=== PATIENT | male | born 1970 | race African-American/Black ===

== ENCOUNTER 2017-02-12 07:22 | Inpatient (IN) ==
[2017-02-12] MEDS ORDERED: ONDANSETRON 4 MG/2 ML VIAL IV STA (08:16)
[2017-02-12] MEDS ORDERED: METOCLOPRAMIDE 10 MG/2 ML VIAL IV STA (08:16)
[2017-02-12] MEDS ORDERED: PANTOPRAZOLE 40 MG VIAL IV STA (08:16)
[2017-02-12] MEDS ORDERED: SODIUM CHLORIDE 0.9% 1,000 ML IV STA (08:16)
--- NOTE | 2017-02-12 08:22 | Emergency Department Note ---
Arrival - Arrival Chief Complaint: GI Bleed/Rectal Stated Complaint: rectal bleed ED Nursing Triage Note: PT C/O DIARRHEA AND BRIGHT RED RECTAL BLEEDING X2 DAYS. PT STATES HE IS WEAK. DENIES PAIN. Mode of Arrival: Ambulatory Limitations: No Limitations Source: Patient Time Seen by Provider: 02/12/17 08:16 - History of Present Illness HPI Narrative: This 47-year-old black male presents with 2 days of bright red blood per rectum associated with black tarry stools as well as significant nausea with intermittent vomiting. Of note the patient is status post cholecystectomy and has had chronic diarrhea ever since for which he takes medication that usually ameliorates this condition, but has not been able to do so given this current situation. The patient describes significant diaphoresis with bowel movements but no significant abdominal cramping or pain with the bowel movement. He denies chills, fever, chest pain, shortness of breath, heartburn, belching, indigestion, colitis history, history of peptic ulcer disease or history of pancreatitis. Currently he feels nauseated but is otherwise medically stable. Onset (ago): day(s) (Patient presents 2 days post onset of symptom) Allergies/Adverse Reactions: Allergies Allergy/AdvReac Type Severity Reaction Status Date / Time No Known Allergies Allergy Verified 02/12/17 07:50 Home Medications: Home Medications Medication Instructions Recorded Confirmed Type Colestipol HCl 4 gm PO BID 02/12/17 02/12/17 History Lisinopril 40 mg PO DAILY 02/12/17 02/12/17 History Metoprolol Succinate 25 mg PO DAILY 02/12/17 02/12/17 History Pantoprazole Tab [Protonix Tab] 40 mg PO DAILY PRN 02/12/17 02/12/17 History amLODIPine [Norvasc] 10 mg PO DAILY 02/12/17 02/12/17 History glipiZIDE [Glipizide] 5 mg PO BEDTIME 02/12/17 02/12/17 History hydroCHLOROthiazide 25 mg PO DAILY 02/12/17 02/12/17 History [Hydrochlorothiazide] Review of System - Review of System 12 point system: reviewed and no additional remarkable complaints except as stated - Review of System Constitutional: Present: as per HPI Respiratory: Present: as per HPI Cardiovascular: Present: as per HPI Gastrointestinal: Present: as per HPI Medical,Surgical,& Family Hx - Medical History Cardio: History of: Hypertension Endocrine: History of: Diabetes Mellitus (IDDM) - Surgical History Abdominal Surgeries: Surgical HX of: Cholecystectomy - Social History Smoking Status: Current every day smoker Frequency of Alcohol Use: Occasionally Type of Drug Use: None Exam Physical Examination: GENERAL: Obese black male in no acute distress. HEENT: Normocephalic. No trauma. Moist mucous membranes. EOMI. PERRLA. ENT NML NECK: Supple. No adenopathy. CARDIAC: Regular. No murmurs. Heart rate 130 CHEST: Clear to auscultation. No respiratory distress. O2 sat 99% ABDOMEN: Soft. Nontender. Hyperactive bowel sounds. EXTREMITIES: No trauma. Normal ROM. No pedal edema. SKIN: No diaphoresis. No rash. NEURO: Alert. Neuro intact no focal deficits. Vital Signs: Vital Signs Temperature 97.8 F 02/12/17 07:47 Pulse Rate 128 H 02/12/17 07:47 Respiratory Rate 18 02/12/17 07:47 Blood Pressure 143/92 02/12/17 07:47 O2 Sat by Pulse Oximetry 100 02/12/17 08:20 Course - Reevaluation(s) Reevaluation #1: Advised patient of need for hospitalization - Consultations Consultation #1: Discussed with hospitalist service who will admit for further evaluation treatment. Results - Labs CBC & BMP: 02/12/17 08:27 02/12/17 08:27 Labs: I have reviewed the lab and noted the low hematocrit and elevated white blood cell count as well as the bump in troponins. - Impressions EKG: Sinus tachycardia with normal DE interval and incomplete right bundle branch block pattern nonspecific ST changes with no acute injury pattern noted. - Diagnostic Findings Procedure: KUB x-ray: image reviewed by me, report reviewed by me (Nonspecific gas and feces pattern) Disposition Clinical Impression: Gastrointestinal hemorrhage Case discussed with: patient, patient's family Disposition: Still a Patient Condition: Guarded Time of Disposition: 09:48
[2017-02-12] MEDS ORDERED: PANTOPRAZOLE 40 MG VIAL IV ONE (08:47)
[2017-02-12] MEDS ORDERED: ONDANSETRON 4 MG/2 ML VIAL ONE (08:47)
[2017-02-12] MEDS ORDERED: METOCLOPRAMIDE 10 MG/2 ML VIAL ONE (08:47)
[2017-02-12 08:57] LABS: Basophils # 0.1 10*3/uL (0.0-0.2); Basophils % 0.3 % (0.0-0.8); Eosinophils # 0.1 10*3/uL (0.0-0.87); Eosinophils % 0.4 % (0.00-10.9); Hematocrit 31.7 VOL% (42.0-52.0); Hemoglobin 10.6 GM/DL (14.0-18.0); Immature Granulocytes % 2.1 %; Immature Granulocytes Absolute 0.38 #; Lymphocytes % 16.4 % (21.2-54.2); Mean Corpuscular HGB Conc 33.4 GM/DL (32-36); Mean Corpuscular Hemoglobin 29 PG (27-34); Mean Corpuscular Volume 86.1 FL (87-102); Mean Platelet Volume 11.9 FL (9.6-12.0); Monocytes # 0.9 10*3/uL (0.11-0.8); Monocytes % 4.9 % (1.7-12.7); Neutrophils # 13.8 10*3/uL (1.4-7.4); Neutrophils % 75.9 % (38.7-73.9); Platelet Count 304 T/CUMM (130-400); Red Blood Count 3.68 MC/CUMM (3.8-5.5); Red Cell Distribution Width 14.5 % (9.3-17.3); White Blood Count 18.3 T/CUMM (4-12)
--- NOTE | 2017-02-12 09:08 | XRay Report ---
Exam: XR abdomen 2V Date: 02/12/2017 8:19 AM Comparison: 08/01/2011 Indication: Nausea vomiting diarrhea Findings: Previous cholecystectomy clips are present. Lung bases are unremarkable. The liver and spleen are unremarkable Renal contours are unremarkable The bony structures are demonstrated with lateral marginal osteophytes along the acetabular rims.. Degenerative change present lateral marginal thoracic lumbar spine. No obvious pneumoperitoneum Nonspecific GI pattern. Impression: 1. Previous cholecystectomy 2. Nonspecific GI pattern. PROCEDURE INTERPRETED AT [facility] DEPARTMENT OF RADIOLOGY Final Report Signed by: Dr. Jose Alejandro Regalado
[2017-02-12 09:16] LABS: INR 1.1; Partial Thromboplastin Time 27.5 SECS (0-40)
[2017-02-12 09:24] LABS: Alanine Aminotransferase 16 U/L (16-61); Albumin 3.6 G/DL (3.4-5.0); Alkaline Phosphatase 59 U/L (45-117); Aspartate Amino Transferase 9 U/L (0-37); Blood Urea Nitrogen 13 MG/DL (7-18); Calcium 8.3 MG/DL (8.5-10.1); Glucose 305 MG/DL (74-106); Osmolality,Calculated 283.8 MOS/KG (273-304); Potassium 4.2 MMOL/L (3.5-5.1); Sodium 137 MMOL/L (136-145); Total Protein 6.4 G/DL (6.4-8.3); Troponin I Only 0.089 NG/ML (0.00-0.045)
--- NOTE | 2017-02-12 10:21 | Hospitalist History & Physical ---
<Judson Reagan - Last Filed: 02/12/17 10:55> Assessment and Plan - Time spent with patient Time spent with patient: Greater than 30 minutes (1) GI bleed Status: Acute Assessment and plan: BRBPR x 2 days. H&H 10.6 and 31.7. Admit for further eval and treatment. INR stable. Patient does have history of hemorrhoids. He has been typed and screened. Will order blood for possible transfusion. IV fluids. Trend H&H. Repeat CBC in a.m. NPO diet. PPI therapy. Current Visit: Yes (2) Hypertension Status: Acute Assessment and plan: Patient did not take antihypertensives this morning. Will continue home meds once reconciled. Current Visit: Yes (3) Diabetes mellitus Status: Acute Assessment and plan: Patient reports a history of DM Type I (I feel he may be confused about this) which he was diagnosed with approximately 7 years ago. He notes that he takes Glimepiride daily. His blood sugars today are 305. We will initiate accu-cheks ACHS and SSI per protocol. Current Visit: Yes (4) SIRS (systemic inflammatory response syndrome) Status: Acute Assessment and plan: Patient is tachycardic with an elevated white count. Will obtain blood culture and lactic acid. Start empiric antibiotics. Current Visit: Yes History of Present Illness Chief complaint: GI Bleed History of present illness: Mr. Sheppard is a 47 year old male with a past medical history significant for DM, hypertension, hemorrhoids, 2 years s/p cholecystectomy who presents to the ED today with complaints of BRBPR having onset 2 days ago. The patient reports that he does normally have diarrhea post his cholecystectomy for which he takes daily colestipol. He notes that he initially began feeling sick to his stomach on but didn't start having the bloody diarrhea until yesterday. He initially attributed the sick feeling and loose red stool to the red hots he had eaten earlier. He notes that he began to feel worried when each time he toileted he would break out in sweat. He vomited twice yesterday, but that has since resolved. On admission, he is resting comfortably and appears to be in no acute distress. He confirms rectal bleeding, nausea, near syncope, general weakness. He denies headache, palpitations, chest pain, abdominal pain, edema. Of note, the patient did have syncopal episode while in radiology today. Labs on admission reveal: WBC 18.3, Hemoglobin 10.6, Hematocrit 31.7, serum glucose 305. After discussion with Dr. Tate and Dr. Harden, the patient will be admitted to the hospital medicine service for further evaluation and treatment. He is a full code. Home meds have been reviewed and reconciled. Home Medications Medication Instructions Recorded Confirmed Type Colestipol HCl 4 gm PO BID 02/12/17 02/12/17 History Lisinopril 40 mg PO DAILY 02/12/17 02/12/17 History Metoprolol Succinate 25 mg PO DAILY 02/12/17 02/12/17 History Pantoprazole Tab [Protonix Tab] 40 mg PO DAILY PRN 02/12/17 02/12/17 History amLODIPine [Norvasc] 10 mg PO DAILY 02/12/17 02/12/17 History glipiZIDE [Glipizide] 5 mg PO BEDTIME 02/12/17 02/12/17 History hydroCHLOROthiazide 25 mg PO DAILY 02/12/17 02/12/17 History [Hydrochlorothiazide] Allergies Allergy/AdvReac Type Severity Reaction Status Date / Time No Known Allergies Allergy Verified 02/12/17 07:50 Medical,Surgical,& Family Hx - Medical History Cardio: History of: Hypertension Endocrine: History of: Diabetes Mellitus (IDDM) - Surgical History Abdominal Surgeries: Surgical HX of: Cholecystectomy - Family History Family History: Reports;: Family Diabetes, Family Heart Disease, Family Hypertension - Social History Smoking Status: Current every day smoker Have you smoked in the last 12 months: Yes Time spent discussing smoking cessation with patient: 3 to 10 minutes Frequency of Alcohol Use: Occasionally Type of Drug Use: None Marital Status: Lives With:: Spouse Functional capacity: independent ambulation 12 point system: reviewed and no additional remarkable complaints except as stated Exam - Constitutional Vitals: Period Temp Pulse Resp BP Sys/Sims Pulse Ox Last 24 Hr 97.8 F 128 18 143/92 99-100 Exam: General appearance: morbidly obese, no acute distress - Head Head exam: Present: normocephalic, atraumatic - Eye Eye exam: Present: EOMI. Absent: conjunctival injection, nystagmus Pupils: Present: MARYCRUZ, normal accommodation - ENT ENT exam: Present: normal exam, normal external ear exam - Neck Neck exam: Present: normal inspection. Absent: lymphadenopathy, tenderness, thyromegaly - Respiratory Respiratory exam: Present: clear to auscultation bilaterally. Absent: rales, rhonchi, wheezes - Cardiovascular Cardiovascular exam: Present: tachycardia. Absent: carotid bruit, gallop, rubs - GI/Abdominal GI/Abdominal exam: Present: normal bowel sounds, soft. Absent: ascites, distended, mass - Extremities Exam Extremities exam: Present: normal inspection, normal capillary refill. Absent: edema - Back Exam Back exam: Absent: CVA tenderness (L), CVA tenderness (R) - Neurological Exam Neurological exam: Present: alert, oriented X3, CN II-XII intact, reflexes normal - Psychiatric Psychiatric exam: Present: normal affect, normal mood - Skin Skin exam: Present: normal color, warm, dry Results - Labs CBC & BMP: 02/12/17 08:27 02/12/17 08:27 Lab Results: I have reviewed the past 24 hour labs - Diagnostic Findings Procedure: Chest x-ray: image reviewed by me, report reviewed by me Sepsis - Sepsis Classification of Sepsis: Sepsis (SIRS with possible infection) - Physical Exam Respiratory exam: clear to auscultation bilaterally Capillary Refill: Less Than 3 Seconds Peripheral pulses: Radial (L): 2+, Radial (R): 2+, Dorsalis Pedis (L) PM: 2+, Dorsalis Pedis (R) PM: 2+, Posterior Tibialis (L): 1+, Posterior Tibialis (R): 1 + Cardiovascular exam: tachycardia Skin exam: normal color <White,Briana R - Last Filed: 02/12/17 12:21> Assessment and Plan (1) GI bleed Status: Acute Assessment and plan: serial hemoglobins, transfuse if less than 8, needs colonoscopy will consult Dr. Bacon who is covering for Dr Navarro Current Visit: Yes (2) Leukocytosis Status: Acute Assessment and plan: ct of abdomen and pelvis, cipro and flagyl IV, stool cultures, probably just gastroenteritis Current Visit: Yes (3) Anemia Status: Acute Assessment and plan: cont protonix 40 mg IV bid, transfuse if less than 8 Current Visit: Yes (4) Hypertension Status: Acute Assessment and plan: hold meds except metoprolol, syncope down in radiology, get orthostatics and NS bolus Current Visit: Yes (5) Diabetes mellitus Status: Acute Current Visit: Yes (6) SIRS (systemic inflammatory response syndrome) Status: Acute Assessment and plan: UA, CXR, started cipro and flagyl Current Visit: Yes History of Present Illness History of present illness: Mr. Sheppard is a 47 year old male seen and examined. Agree with findings above. Patient had EGD from Dr. Navarro in the past. Patient does reports bloody bowel movements and dark tarry bowel movements. He has Nausea and vomiting since but has chronic diarrhea after GB removed. - Constitutional Constitutional: Present: headache(s), weight gain. Absent: daytime sleepiness, fatigue - EENT Eyes: Absent: blurry vision, diplopia Ears: Absent: decreased hearing, ear discharge Nose, mouth and throat: Present: headache(s). Absent: sore throat - Cardiovascular Cardiovascular: Absent: chest pain at rest, dyspnea - Respiratory Respiratory: Absent: cough, dyspnea - Gastrointestinal Gastrointestinal: Present: bloating, diarrhea, hematochezia, nausea, vomiting. Absent: abdominal pain, constipation - Genitourinary Genitourinary: Absent: difficulty urinating, dysuria - Neurological Neurological: Present: headache(s), syncope. Absent: focal weakness - Psychiatric Psychiatric: Absent: anxiety, depression - Endocrine Endocrine: Present: heat intolerance. Absent: cold intolerance, fatigue - Hematologic/Lymphatic Hematologic/Lymphatic: Absent: easy bleeding, easy bruising Exam - Constitutional Vitals: Period Temp Pulse Resp BP Sys/Sims Pulse Ox Last 24 Hr 97.8 F-97.8 F 101-128 18-20 130-167/86-114 97-100 Results - Labs CBC & BMP: 02/12/17 08:27 02/12/17 08:27 - Diagnostic Findings Procedure: Abdominal x-ray: report reviewed by me (nonspecific bowel gas pattern )
[2017-02-12] MEDS ORDERED: DOCUSATE SODIUM 100 MG CAPSULE PO PRN (11:02)
[2017-02-12] MEDS ORDERED: ACETAMINOPHEN 325 MG TABLET PO PRN (11:02)
[2017-02-12] MEDS ORDERED: LACTULOSE 20 GM/30 ML UDCUP PO PRN (11:02)
[2017-02-12] MEDS ORDERED: NICOTINE 21 MG/24 HR PATCH TRANSDERM PRN (11:02)
[2017-02-12] MEDS ORDERED: GLUCAGON 1 MG VIAL IM PRN (11:13)
[2017-02-12] MEDS ORDERED: DEXTROSE 50% 25 GM/50 ML VIAL IV PRN (11:13)
[2017-02-12] MEDS ORDERED: LISINOPRIL 20 MG TABLET PO SCH (11:15)
[2017-02-12] MEDS ORDERED: PANTOPRAZOLE 40 MG TABLET PO SCH (11:30)
[2017-02-12] MEDS ORDERED: hydroCHLOROthiazide 25 MG TABLET PO SCH (11:30)
[2017-02-12] MEDS ORDERED: amLODIPine 10 MG TABLET PO SCH (11:30)
[2017-02-12] MEDS ORDERED: SODIUM CHLORIDE 0.9% 1,000 ML IV ONE (12:09)
--- NOTE | 2017-02-12 12:45 | XRay Report ---
XR chest 1V portable Indication: Shortness of breath Comparison: Chest x-ray 08/21/2013. Technique: Portable AP chest was performed. Findings: Heart size, mediastinal contour, and hilar structures demonstrate no significant abnormalities. The lung parenchyma is clear. Bones and soft tissues demonstrate no significant abnormalities. Impression: 1. No evidence of acute pathology. 02/12/2017 12:42 PM PROCEDURE INTERPRETED AT [facility] DEPARTMENT OF RADIOLOGY Final Report Signed by: Dr. Colin Kumar
[2017-02-12 12:48] LABS: Hematocrit 32.6 VOL% (42.0-52.0); Hemoglobin 10.8 GM/DL (14.0-18.0)
[2017-02-12] MEDS: CIPROFLOXACIN INJ 400 MG in PREMIX 1 EACH IV SCH (13:53)
[2017-02-12] MEDS: METOPROLOL SUCCINATE XL 25 MG TABLET PO SCH (14:01)
[2017-02-12] MEDS: SODIUM CHLORIDE 0.9% 1,000 ML IV SCH (14:01)
[2017-02-12] MEDS: INSULIN LISPRO 100 UNIT/ML SUBCUT SCH ×3 (14:01→20:50)
--- NOTE | 2017-02-12 15:03 | CT Report ---
Exam: CT abdomen pelvis w con Date: 02/12/2017 12:12 PM Comparison: None Indication: Nausea vomiting diarrhea Total DLP: 3435.7 mGy*cm Technical: Oral contrast was administered. Images were obtained from the lung bases to the iliac crest continuation through the pelvis with 100 cc of Omnipaque 350 with axial sagittal coronal imaging available for review. Dose reduction was performed with decreasing kv and mA and automated exposure Findings: Lung bases: No obvious infiltrates or effusions present. The heart is normal in size. Liver and Spleen: Tiny area of decreased attenuation in the right hepatic lobe measuring approximately 7 mm. Minimal fatty infiltration present. Hepatic and portal veins and spleen are unremarkable. Gallbladder and Pancreas: Previous cholecystectomy. The pancreas is unremarkable. Adrenals: Unremarkable Kidneys: Both kidneys are equally perfused and demonstrate no evidence for obstructive uropathy. Stomach: Incomplete distended with air-fluid and debris Retroperitoneum: No enlarged lymph nodes. Aorta and IVC: No obvious aneurysm aorta vessels and IVC reveal no obvious aneurysm. Atherosclerotic plaque in the aorta iliac vessels present. Bowel and Mesentery: No evidence of appendicitis or diverticulosis or diverticulitis change present. No free fluid present. The appendix is air and contrast and fluid filled Pelvis: Bladder: Incompletely distended with contrast and fluid Fluid: No free fluid identified. Lymph nodes: Small shotty nodes present. Pelvic organs: Unremarkable Osseous structures: Degenerative changes present thoracolumbar spine. Impression: 1. Small cyst in the right hepatic lobe measuring 7 mm. Minimal fatty infiltrate of the liver 2. Previous cholecystectomy 3. Degenerative spondylosis change thoracic lumbar spine. 4. Vascular calcinosis 5. No evidence of free fluid appendicitis or diverticulitis present. PROCEDURE INTERPRETED AT [facility] DEPARTMENT OF RADIOLOGY Final Report Signed by: Dr. Jose Alejandro Regalado
[2017-02-12] MEDS: metroNIDAZOLE INJ 500 MG in PREMIX 1 EACH IV SCH ×2 (15:17→20:59)
[2017-02-12 19:41] LABS: Hemoglobin 9.3 GM/DL (14.0-18.0)
[2017-02-12] MEDS: PANTOPRAZOLE 40 MG VIAL IV SCH (20:46)
[2017-02-12] MEDS ORDERED: COLESTIPOL 1 GM TABLET PO SCH (21:00)
[2017-02-13] MEDS: CIPROFLOXACIN INJ 400 MG in PREMIX 1 EACH IV SCH ×2 (00:39→13:50)
[2017-02-13 01:46] LABS: Basophils # 0.1 10*3/uL (0.0-0.2); Basophils % 0.4 % (0.0-0.8); Eosinophils # 0.5 10*3/uL (0.0-0.87); Eosinophils % 2.3 % (0.00-10.9); Hemoglobin 8.3 GM/DL (14.0-18.0); Immature Granulocytes % 1.7 %; Immature Granulocytes Absolute 0.35 #; Mean Corpuscular HGB Conc 33.2 GM/DL (32-36); Mean Corpuscular Hemoglobin 29 PG (27-34); Mean Corpuscular Volume 87.4 FL (87-102); Mean Platelet Volume 11.5 FL (9.6-12.0); Monocytes # 1.2 10*3/uL (0.11-0.8); Monocytes % 5.8 % (1.7-12.7); Neutrophils # 11.5 10*3/uL (1.4-7.4); Neutrophils % 55.8 % (38.7-73.9); Platelet Count 234 T/CUMM (130-400); Red Blood Count 2.86 MC/CUMM (3.8-5.5); Red Cell Distribution Width 14.6 % (9.3-17.3); White Blood Count 20.6 T/CUMM (4-12)
[2017-02-13 02:15] LABS: Calcium 8.3 MG/DL (8.5-10.1); Magnesium 2.2 MG/DL (1.8-2.4); Osmolality,Calculated 280.4 MOS/KG (273-304)
[2017-02-13 03:34] LABS: Platelet Estimate Normal
[2017-02-13] MEDS: SODIUM CHLORIDE 0.9% 1,000 ML IV SCH ×4 (04:16→21:58)
[2017-02-13] MEDS: metroNIDAZOLE INJ 500 MG in PREMIX 1 EACH IV SCH (05:07)
--- NOTE | 2017-02-13 06:46 | EKG Report ---
Stationary ECG Study [facility] ER Test Date: 02/12/2017 9:23:36 AM Pat Name: DON LAZO Department: Room: 517 Gender: M Ventilating Equipment Installer: : 1970 Requested by: Chucho Rowell Order Number: [id number] Reading MD: MAGGI MARTINES Intervals [place] Rate: 107 P: 70 ME: 132 QRS: 18 QRSD: 104 T: 43 QT: 353 QTc: 416 Interpretive Statements SINUS TACHYCARDIA INCOMPLETE RIGHT BUNDLE BRANCH BLOCK Electronically Signed On 02-13-17 06:59:21 CDT by MAGGI MARTINES [email or web address]
[2017-02-13] MEDS: PANTOPRAZOLE 40 MG VIAL IV SCH ×2 (08:13→20:18)
[2017-02-13] MEDS: INSULIN LISPRO 100 UNIT/ML SUBCUT SCH ×4 (08:13→20:18)
[2017-02-13] MEDS: METOPROLOL SUCCINATE XL 25 MG TABLET PO SCH (08:13)
--- NOTE | 2017-02-13 10:35 | Hospitalist Progress Note ---
Assessment and Plan (1) GI bleed Status: Acute Assessment and plan: Transfuse 2 units of prbc today and prn hgb less than 8, bleeding scan, Dr. Bacon consulted. Cont clear liquids only. Current Visit: Yes (2) Leukocytosis Status: Acute Assessment and plan: WBC cont to climb, could be due to bleeding, cont cipro to cover for gastroenteritis. Stool negative for WBC, c diff and cx, cont to monitor Current Visit: Yes (3) Anemia Status: Acute Assessment and plan: cont protonix 40 mg IV bid, transfuse 2 units now Current Visit: Yes (4) Hypertension Status: Acute Assessment and plan: orthostatic, cont NS and giving two units of blood Current Visit: Yes (5) Diabetes mellitus Status: Acute Assessment and plan: Hemoglobin A1c 7.3. Blood sugars stable continue insulin sliding scale only for now Current Visit: Yes (6) SIRS (systemic inflammatory response syndrome) Status: Acute Assessment and plan: elevated lactic acid of 2.6, but dont consider him septic shock, blood cx pending, UA pending, stool cx negative, no diverticulitis on ct, cont cipro IV, Elevated WBC thought to be due to brisk GI bleed. Discussed with Dr. Bacon, doubt gut or ischemic colitis due to lack of pain. Current Visit: Yes Hospitalist: Subjective Interval history: Patient continues to be orthostatic from acute blood loss. We will give him 2 units packed red blood cells today. I would like to get a bleeding scan to locate the source of his bleeding. Dr. Bacon is going to see him today. I asked him to not get out of bed without assistance. Exam - Constitutional Vitals: Period Temp Pulse Resp BP Sys/Sims Pulse Ox Last 24 Hr 97.9 F-98.9 F 91-127 16-20 108-159/45-107 93-118 Exam: Heart Rate-[tachy] Lungs-[CTAB] GI-[+bs soft, NT, obese] Ext-[no edema] Neuro [Motor 5/5], [alert and oriented times 3] psych [normal mood and affect] General [no acute distress] Results - Labs CBC & BMP: 02/13/17 01:17 02/13/17 01:17 Lab Results: I have reviewed the past 24 hour labs
[2017-02-13] MEDS ORDERED: SODIUM CHLORIDE 0.9% 1,000 ML IV ONE (10:50)
--- NOTE | 2017-02-13 11:28 | Gastrointestinal Consult Note ---
Assessment and Plan (1) Fatty liver Status: Acute Assessment and plan: Suspect related to morbid obesity with normal liver test at this point no further evaluation other than suggested weight loss should be entertained Current Visit: Yes (2) Liver cyst Status: Acute Assessment and plan: Unlikely to be of clinical significance no further evaluation needed Current Visit: Yes (3) GI bleed Status: Acute Assessment and plan: 5 day history of painless GI bleeding. Will need colonoscopy to further evaluate. Bleeding scan has been ordered and may prove beneficial localizing region of bleeding. With the absence of pain the possibility of diverticular bleeding would be most likely however will need to exclude other sources of inflammatory bowel disease and malignancy. He has no clinical symptoms at this time to suggest intestinal ischemia or peptic ulcer disease. We will continue to monitor his H&H and transfuse as needed. Will plan colonoscopy in a.m. with Dr. Willie Navarro. Will defer question of EGD to Dr. Navarro pending results of colonoscopy. He is hemodynamically stable at this time. Current Visit: Yes History of Present Illness Chief complaint: Rectal bleeding History of present illness: Mr. Sheppard is a 47 year old male With a 5 day history of rectal bleeding with no complaints of pain. He denies previous history of rectal bleeding and denies any straining at stools. He has had no nausea vomiting no upper tract symptoms of been reported. On admission his hematocrit was 32 went down to 28 and is today down to 25. He is continued to have some older looking blood past but has no nausea or vomiting that he complains of. He does take rare nonsteroidals but none on any regular basis he denies any alcohol use. CT scan done on admission is remarkable for some fatty liver and benign appearing hepatic cysts otherwise unremarkable. He has had previous cholecystectomy and uses Colestid for postcholecystectomy diarrhea. We are asked to see him now for further evaluation of his rectal bleeding. He did have an upper endoscopy done by Dr. Navarro 2 years ago with no reported findings other than H. pylori which was treated at that time. No family history of inflammatory bowel disease or colon cancer is reported. Home Medications Medication Instructions Recorded Confirmed Type Colestipol HCl 4 gm PO BID W/MEALS 02/12/17 02/12/17 History Lisinopril 40 mg PO BID 02/12/17 02/12/17 History Metoprolol Succinate 25 mg PO DAILY 02/12/17 02/12/17 History Pantoprazole Tab [Protonix Tab] 40 mg PO DAILY PRN 02/12/17 02/12/17 History amLODIPine [Norvasc] 10 mg PO DAILY 02/12/17 02/12/17 History glipiZIDE [Glipizide] 5 mg PO BEDTIME 02/12/17 02/12/17 History hydroCHLOROthiazide 25 mg PO DAILY 02/12/17 02/12/17 History [Hydrochlorothiazide] Allergies Allergy/AdvReac Type Severity Reaction Status Date / Time No Known Allergies Allergy Verified 02/12/17 07:50 Medical,Surgical,& Family Hx - Medical History Cardio: History of: Hypertension Endocrine: History of: Diabetes Mellitus (IDDM) Gastrointestinal: History of: Hemorrhoids - Surgical History Abdominal Surgeries: Surgical HX of: Cholecystectomy, EGD Orthopedic Surgeries: Surgical HX of;: Orthopedic Surgery (right knee scope) - Family History Family History: Reports;: Family Diabetes, Family Heart Disease, Family Hypertension Denies;: Family Anesthesia Reaction, Family Cancer, Family Hematology, Family Psychiatric Problems, Family Stroke, Additional Family History - Social History Smoking Status: Current every day smoker Frequency of Alcohol Use: Occasionally Type of Drug Use: None - Constitutional Constitutional: Absent: anorexia, chills, fatigue, fever(s) - EENT Eyes: Absent: blurry vision Nose, mouth and throat: Absent: dysphagia, epistaxis, headache(s) - Cardiovascular Cardiovascular: Absent: chest pain at rest, chest pain with activity, edema - Respiratory Respiratory: Absent: cough, dyspnea, dyspnea on exertion - Gastrointestinal Gastrointestinal: Present: hematochezia. Absent: abdominal pain, bloating, change in bowel habits, hematemesis, melena, nausea, vomiting - Genitourinary Genitourinary: Absent: dysuria, flank pain - Neurological Neurological: Absent: abnormal gait, abnormal speech - Psychiatric Psychiatric: Absent: anxiety, depression - Endocrine Endocrine: Absent: fatigue, polydipsia, polyphagia - Hematologic/Lymphatic Hematologic/Lymphatic: Absent: easy bleeding, easy bruising, lymphadenopathy Exam - Constitutional Vitals: Period Temp Pulse Resp BP Sys/Sims Pulse Ox Last 24 Hr 97.9 F-98.9 F 91-127 16-20 108-159/45-107 93-118 General appearance: no acute distress, morbidly obese - Head Head exam: Present: normal inspection, normocephalic, atraumatic - Eye Eye exam: Present: EOMI. Absent: conjunctival injection, scleral icterus Pupils: Present: MARYCRUZ. Absent: dilated, irregular - ENT ENT exam: Present: normal oropharynx - Neck Neck exam: Present: normal inspection. Absent: lymphadenopathy, thyromegaly - Respiratory Respiratory exam: Present: clear to auscultation bilaterally. Absent: accessory muscle use, rales - Cardiovascular Cardiovascular exam: Present: regular rate and rhythm. Absent: systolic murmur - GI/Abdominal GI/Abdominal exam: Present: normal bowel sounds, soft. Absent: distended, mass , organomegaly, tenderness, rebound - Extremities Exam Extremities exam: Present: normal inspection, normal capillary refill - Back Exam Back exam: Present: normal inspection - Neurological Exam Neurological exam: Present: alert, oriented X3 - Psychiatric Psychiatric exam: Present: normal affect, normal mood - Skin Skin exam: Present: normal color, warm, dry Results - Labs CBC & BMP: 02/13/17 01:17 02/13/17 01:17 Lab Results: I have reviewed the past 24 hour labs - Diagnostic Findings Procedure: KUB x-ray: report reviewed by me, CT: report reviewed by me
[2017-02-13] MEDS ORDERED: BISACODYL 5 MG TABLET PO ONE (12:00)
--- NOTE | 2017-02-13 14:07 | Nuclear Medicine Report ---
Nuclear medicine GI bleeding study. Indication: History of dark bloody stool. Core Limited study, CT of the abdomen and pelvis from February 12, 2017. Following the intravenous administration of 25 mCi technetium 99m tagged PYP red blood cells, imaging was performed over the abdomen and pelvis during blood pool for 60 seconds, and delayed for one hour. Physiologic uptake is seen. No findings to suggest active GI bleeding. Impression: Negative exam. PROCEDURE INTERPRETED AT [facility] DEPARTMENT OF RADIOLOGY Final Report Signed by: Dr. Rosanna Bhatti
[2017-02-13 15:20] LABS: Apearance,Urine CLEAR (Clear); Bilirubin,Urine Negative (Negative); Blood, Urine Moderate mg/dL (Negative); Glucose,Urine (UA) Negative (Negative); Ketones,Urine Negative (Negative); Mucus,Urine Occasional /LPF (Occasional); Nitrite,Urine Negative (Negative); Protein,Urine Negative; Squamous Epithelial Cell,Urine Occasional /HPF (0-10); Urine Color Yellow (Yellow); Urine Specific Gravity 1.011 (1.001-1.035); Urine Urobilinogen < 2.0 EU/DL (0.2-1.0); WBC,Urine <1 /HPF (0-6)
[2017-02-13] MEDS ORDERED: POLYETHYLENE GLYCOL POWDER 255 GM BOTTLE PO ONE (18:00)
[2017-02-14] MEDS: CIPROFLOXACIN INJ 400 MG in PREMIX 1 EACH IV SCH ×2 (00:24→12:37)
[2017-02-14 04:29] LABS: Basophils # 0.1 10*3/uL (0.0-0.2); Basophils % 0.5 % (0.0-0.8); Eosinophils # 0.6 10*3/uL (0.0-0.87); Eosinophils % 3.2 % (0.00-10.9); Hematocrit 26.9 VOL% (42.0-52.0); Immature Granulocytes % 2.6 %; Immature Granulocytes Absolute 0.45 #; Lymphocytes # 4.3 10*3/uL (1.4-4.0); Lymphocytes % 24.8 % (21.2-54.2); Mean Corpuscular HGB Conc 33.5 GM/DL (32-36); Mean Corpuscular Hemoglobin 29 PG (27-34); Mean Corpuscular Volume 87.3 FL (87-102); Mean Platelet Volume 11.1 FL (9.6-12.0); Monocytes # 1.1 10*3/uL (0.11-0.8); Monocytes % 6.6 % (1.7-12.7); Neutrophils # 10.8 10*3/uL (1.4-7.4); Neutrophils % 62.3 % (38.7-73.9); Platelet Count 198 T/CUMM (130-400); Red Blood Count 3.08 MC/CUMM (3.8-5.5); Red Cell Distribution Width 14.6 % (9.3-17.3); White Blood Count 17.4 T/CUMM (4-12)
[2017-02-14 04:56] LABS: Calcium 8.3 MG/DL (8.5-10.1); Osmolality,Calculated 278.4 MOS/KG (273-304); Potassium 3.8 MMOL/L (3.5-5.1)
--- NOTE | 2017-02-14 07:23 | Operative Note ---
Date of procedure: 02/14/17 Pre-op diagnosis: Hematocrit dropped 32.6-->26.9%, rectal bleeding Post-op diagnosis: other (This patient appears to have had a diverticular bleed which I suspect was from the right side of the colon as he has pandiverticulosis noted. Small internal hemorrhoids were noted on retroflex and a single polyp was removed from the proximal descending colon by hot snare polypectomy.) Procedure: PROCEDURE: Colonoscopy and hot snare polypectomy REFERRING PHYSICIAN: Briana Harden MD INDICATIONS: Rectal bleeding from 32% down to 27% the prior H&P was reviewed and interrim changes are as noted: No change from GI consultation yesterday ENDOSCOPIST: Jordi Navarro MD ENDOSCOPE: [employer] Video 100 System colonoscope COLON PREPARATION: 238 gm of PEG containing laxative and 1.9 liters of gatoraid/sports drink and dulcolax 15 mg q8 hours x 3 ASA CLASS: 3 EXAM: CV: regular rate and rhythm Respiratory: Clear without wheezes Abdominal: active bowel sounds Rectal: Good tone, no fissures or fistulas MEDICATION: Per nursing anesthesia protocol, see their notes PROCEDURE: After discussion of the potential risks and benefits of colonoscopy, the informed consent was obtained, from patient or health care surrogate. The patient was then placed in the left lateral decubitus position where sedation was achieved as noted above. Rectal examination was followed by insertion of the colonoscope. The colonoscope was passed under direct visualization to the cecum. Advancement was facilitated by insertion/withdrawl techniques, abdominal pressure and patient positioning. Once the cecal pole was reached, slow withdrawal was performed with the findings as noted below. The patient tolerated the procedure well and without complication. QUALITY OF PREP: Excellent WITHDRAWL TIME: 10 minutes 2 seconds BIOPSIES: Proximal descending colon polyp PHOTOGRAPHS: Obtained FINDINGS: The musoca appeared normal in the following regions: rectum, sigmoid colon, splenic flexure, transverse colon, hepatic flexure, ascending colon and cecum. Position within the cecum was confirmed by ileocecal valve, appendiceal oriface, and the convergence of folds (crows foot). No colitis, mass or AVM was noted throughout the colon. There was a single 8 mm polyp noted in the proximal descending colon removed by hot snare polypectomy, unfortunately this shredded as it was being retrieved and only minimal scraps were found. Mild smith-diverticulosis noted, thought to be the source of the bleeding in the right colon. Intubation of the TI was achieved x 5 cm with normal appearence, and small internal hemorrhoids noted on retroflex. IMPRESSION: This patient appears to have had a diverticular bleed which I suspect was from the right side of the colon as he has pandiverticulosis noted. Small internal hemorrhoids were noted on retroflex and a single polyp was removed from the proximal descending colon by hot snare polypectomy. RECOMMENDATIONS: High fiber diet Repeat colonosocopy in 5 years. Citrucel 1 tablespoon in 12 oz juice BID: 1 bottle: :11 Follow up by phone for biopsy results in 1-2 weeks by phone If further bleeding occurs again in the future would consider getting a immediate tagged red blood cell scan to localize the area of bleeding. I suspect this may be ascending colon diverticular bleeding This patient might benefit from a transfusion of 1-2 units of blood at this point as he is down to 27% but will leave this option to the patient himself. Jordi Navarro MD COPY TO: Briana Harden MD Anesthesia: MAC Surgeon / Physician: Jordi Navarro Estimated blood loss: minimal Specimens: other (Proximal descending colon polyp) Condition: stable Disposition: post procedure unit (G.I. Suite) Results - Labs CBC & BMP: 02/14/17 04:01 02/14/17 04:01 Discharge Plan - Discharge Medications No Action Lisinopril 40 mg PO BID Colestipol HCl 4 gm PO BID W/MEALS Metoprolol Succinate 25 mg PO DAILY glipiZIDE [Glipizide] 5 mg PO BEDTIME Pantoprazole Tab [Protonix Tab] 40 mg PO DAILY PRN PRN Reason: stomach hydroCHLOROthiazide [Hydrochlorothiazide] 25 mg PO DAILY amLODIPine [Norvasc] 10 mg PO DAILY - Follow Up or Referral - Forms/Instructions
--- NOTE | 2017-02-14 07:25 | Anesthesia Post-Op ---
Anesthesia Post OP - Post Ansesthetic Evaluation Patient seen in post op: Yes Resp: within normal limits CV: within normal limits Mental: within normal limits Temp: within normal limits [id number]: within normal limits Nausea and Vomiting: within normal limits Pain: within normal limits
--- NOTE | 2017-02-14 07:27 | Gastrointestinal Progress Note ---
Assessment and Plan (1) Diverticulosis of colon with hemorrhage Status: Acute Assessment and plan: This patient had diverticuli throughout the colon, his hematocrit dropped down from 32% to 27% but seems to be otherwise doing quite well. Colonoscopy did not demonstrate any evidence of colitis, ischemia, cancer, or other bleeding source. The patient did have a polyp and will require repeat colonoscopy in 5 years. From my standpoint he is certainly safe to be discharged. We may wish to transfuse him a unit or 2 of blood based on how tired he is with his present anemia, he seems to be on the borderline for transfusion of my opinion. If he re-presents again with further bleeding down the road as occurs in about 25% of patients he will need a tagged red blood cell scan at that point. Current Visit: Yes (2) Acute posthemorrhagic anemia Status: Acute Assessment and plan: Patient's hematocrit this morning is approximately 27%. He has no further bleeding on colonoscopic examination, he can certainly be discharged today in my opinion. Current Visit: Yes (3) Helicobacter pylori gastritis Status: Acute Assessment and plan: This was previously treated approximately 2 years ago and the patient was last seen, his GERD is under control as long as he takes his proton pump inhibitors. Current Visit: Yes (4) Morbid obesity Status: Acute Assessment and plan: The patient needs to lose some weight. He will try to accomplish this as an outpatient. Current Visit: Yes (5) Colon polyps Status: Acute Assessment and plan: The patient has colon polyps discovered on today's colonoscopy. He will require repeat colonoscopy in 5 years. The polyp appeared adenomatous but most of this was lost during the retrieval. Current Visit: Yes Gastroenterology - PN: Subj Interval history: No new complaints, no further bleeding. Exam (Progress Note) - Constitutional Vitals: Period Temp Pulse Resp BP Sys/Sims Pulse Ox Last 24 Hr 97.6 F-98.7 F 85-118 15-20 116-159/66-95 93-100 General appearance: no acute distress - Head Head exam: Present: normocephalic - Eye Eye exam: Present: EOMI Pupils: Present: MARYCRUZ - Respiratory Respiratory exam: Present: clear to auscultation bilaterally - Cardiovascular Cardiovascular exam: Present: regular rate and rhythm - GI/Abdominal GI/Abdominal exam: Present: normal bowel sounds, soft. Absent: distended, tenderness, rebound - Extremities Exam Extremities exam: Absent: edema - Neurological Exam Neurological exam: Present: alert, oriented X3, CN II-XII intact - Psychiatric Psychiatric exam: Present: normal affect, normal mood - Skin Skin exam: Present: warm Results - Labs CBC & BMP: 02/14/17 04:01 02/14/17 04:01
[2017-02-14] MEDS: INSULIN LISPRO 100 UNIT/ML SUBCUT SCH ×4 (07:34→20:38)
[2017-02-14] MEDS ORDERED: ONDANSETRON 4 MG/2 ML VIAL ONE (07:38)
[2017-02-14] MEDS: ONDANSETRON 4 MG/2 ML VIAL IV PRN ×2 (07:40→16:08)
[2017-02-14] MEDS: PANTOPRAZOLE 40 MG VIAL IV SCH ×3 (08:01→20:26)
[2017-02-14] MEDS: METOPROLOL SUCCINATE XL 25 MG TABLET PO SCH ×2 (08:01→08:17)
--- NOTE | 2017-02-14 09:41 | Hospitalist Progress Note ---
Assessment and Plan (1) GI bleed Status: Acute Assessment and plan: Resolved bleeding scan negative. Most likely due to diverticular bleed. Status post colonoscopy no active bleeding does have hemorrhoids and diverticuli. Current Visit: Yes (2) Leukocytosis Status: Acute Assessment and plan: May due to inflammation from diverticulitis bleed. Continue Cipro for now. Trending down. Blood cultures negative. UA negative Current Visit: Yes (3) Anemia Status: Acute Assessment and plan: cont protonix 40 mg IV bid, stable Current Visit: Yes (4) Hypertension Status: Acute Assessment and plan: orthostatic, cont NS and giving two units of blood Current Visit: Yes (5) Diabetes mellitus Status: Acute Assessment and plan: Hemoglobin A1c 7.3. Blood sugars stable continue insulin sliding scale only for now Current Visit: Yes (6) SIRS (systemic inflammatory response syndrome) Status: Acute Assessment and plan: elevated lactic acid of 2.6, but dont consider him septic shock, blood cx pending, UA pending, stool cx negative, no diverticulitis on ct, cont cipro IV, Elevated WBC thought to be due to brisk GI bleed. Discussed with Dr. Bacon, doubt gut or ischemic colitis due to lack of pain. Current Visit: Yes Hospitalist: Subjective Interval history: Patient no longer bleeding. Patient has had an colonoscopy today which showed diverticuli and hemorrhoids. No active bleeding at this time. Bleeding scan from yesterday was negative. Patient feeling better today and white count trending down. Hemoglobin is stable but I would like him to stay 1 more day to ensure that it remains stable. I will Hep-Lock his fluids and DC his athletic monitor Exam - Constitutional Vitals: Period Temp Pulse Resp BP Sys/Sims Pulse Ox Last 24 Hr 97.5 F-98.9 F 85-118 15-22 116-183/66-114 94-100 Exam: Heart Rate-[regular rate and rhythm] Lungs-[CTAB] GI-[+bs soft, NT, obese] Ext-[no edema] Neuro [Motor 5/5], [alert and oriented times 3] psych [normal mood and affect] General [no acute distress] Results - Labs CBC & BMP: 02/14/17 04:01 02/14/17 04:01 Lab Results: I have reviewed the past 24 hour labs Labs: Blood cultures 2 negative no growth, stool for culture negative
[2017-02-14] MEDS: CARVEDILOL 6.25 MG TABLET PO SCH ×2 (09:56→16:04)
[2017-02-14] MEDS: amLODIPine 5 MG TABLET PO SCH (09:56)
[2017-02-15] MEDS: CIPROFLOXACIN INJ 400 MG in PREMIX 1 EACH IV SCH (00:47)
[2017-02-15 03:16] LABS: Basophils # 0.1 10*3/uL (0.0-0.2); Basophils % 0.4 % (0.0-0.8); Eosinophils # 0.6 10*3/uL (0.0-0.87); Eosinophils % 3.1 % (0.00-10.9); Hematocrit 25.1 VOL% (42.0-52.0); Hemoglobin 8.5 GM/DL (14.0-18.0); Immature Granulocytes % 1.9 %; Immature Granulocytes Absolute 0.33 #; Lymphocytes # 5.2 10*3/uL (1.4-4.0); Lymphocytes % 29.1 % (21.2-54.2); Mean Corpuscular HGB Conc 33.9 GM/DL (32-36); Mean Corpuscular Hemoglobin 29 PG (27-34); Mean Corpuscular Volume 86.9 FL (87-102); Mean Platelet Volume 10.5 FL (9.6-12.0); Monocytes # 1.1 10*3/uL (0.11-0.8); Monocytes % 6.4 % (1.7-12.7); Neutrophils # 10.5 10*3/uL (1.4-7.4); Neutrophils % 59.1 % (38.7-73.9); Platelet Count 216 T/CUMM (130-400); Red Blood Count 2.89 MC/CUMM (3.8-5.5); Red Cell Distribution Width 14.1 % (9.3-17.3); White Blood Count 17.7 T/CUMM (4-12)
[2017-02-15 03:43] LABS: Calcium 8.6 MG/DL (8.5-10.1); Osmolality,Calculated 281.1 MOS/KG (273-304); Potassium 3.7 MMOL/L (3.5-5.1)
[2017-02-15] MEDS ORDERED: FUROSEMIDE 20 MG/2 ML VIAL IV PRN (07:12)
[2017-02-15] MEDS ORDERED: SODIUM CHLORIDE 0.9% 250 ML IV PRN (07:12)
[2017-02-15 07:44] VITALS: BP 168/85
[2017-02-15] MEDS: CARVEDILOL 6.25 MG TABLET PO SCH (07:58)
[2017-02-15] MEDS: INSULIN LISPRO 100 UNIT/ML SUBCUT SCH (07:58)
[2017-02-15] MEDS: amLODIPine 5 MG TABLET PO SCH (07:59)
[2017-02-15] MEDS: PANTOPRAZOLE 40 MG VIAL IV SCH (07:59)
--- NOTE | 2017-02-15 08:38 | Discharge Summary ---
<[place] - Last Filed: 02/15/17 08:59> Hospital Course - Hospital Course Hospital Course: Mr. Sheppard is a 47 year old with a past medical history significant for DM, hypertension, hemorrhoids, 2 years s/p cholecystectomy who presented to the ED on 02/12/2017 with complaints of BRBPR. The patient was evaluated in the ED, found to have brisk bleeding and was admitted to the hospital medicine service with GI Bleed, Hypertension, DM, SIRS, leukocytosis. We obtained serial hemoglobins, ordered blood for transfusion, consulted GI, ordered a CT of abdomen and pelvis, stool cultures and started the patient on Cipro and Flagyl IV. Due to the patient having a syncopal episode while in radiology, all antihypertensives were held except his metoprolol. Abdominal CT was remarkable only for some fatty liver and benign-appearing hepatic cysts. His H&H continued to drop, and he was transfused with 2 units of packed red blood cells on 02/13/2017. A bleeding scan was negative for any apparent source of bleeding. The patient had a colonoscopy and hot snare polypectomy on 2016 which found the patient to have had a diverticular bleed which appears to have come from the right side of the colon and pandiverticulosis was noted. Patient does have small internal hemorrhoids and a single polyp was removed from the proximal descending colon by hot snare polypectomy. GI recommends high -fiber diet with repeat colonoscopy in 5 years and follow-up by phone for biopsy results in 1-2 weeks at . Leukocytosis is believed to be from inflammation associated with diverticular bleed but will treat with 10 days of cipro and flagyl. His anemia is stable with an H&H of 8.5 and 21.5. The patient should continue PPI therapy. He will be discharged home to self with follow-up with his PCP and with GI by phone for biopsy results. Patient seen and examined and stable for discharge. Hospital course reviewed and edited. Diagnosis - Discharge Diagnosis (1) GI bleed Status: Acute (2) Hypertension Status: Acute (3) Diabetes mellitus Status: Acute (4) SIRS (systemic inflammatory response syndrome) Status: Acute Specialty Discharge - Follow Up or Referrals Discharge Plan - Discharge Data Disposition: Disch To Home/Self Care - Discharge Medications New Ciprofloxacin Tab [Cipro Tab] 750 mg PO BID #20 tablet metroNIDAZOLE TAB [Flagyl Cap/Tab] 500 mg PO TID #30 tablet Carvedilol [Coreg] 6.25 mg PO BID W/MEALS #60 tablet Continue Colestipol HCl 4 gm PO BID W/MEALS Metoprolol Succinate 25 mg PO DAILY glipiZIDE [Glipizide] 5 mg PO BEDTIME Pantoprazole Tab [Protonix Tab] 40 mg PO DAILY PRN PRN Reason: stomach amLODIPine [Norvasc] 10 mg PO DAILY Discontinued Lisinopril 40 mg PO BID hydroCHLOROthiazide [Hydrochlorothiazide] 25 mg PO DAILY - Follow Up or Referral Follow Up: Jordi Navarro MD [Physician] - 1 Month Herman Moreno MD [Physician] - 2 Weeks - Forms/Instructions Instructions: Gastrointestinal Bleeding (DC), Diverticulitis (DC), Diverticulitis Diet (DC) Exam - Constitutional Vitals: Period Temp Pulse Resp BP Sys/Sims Pulse Ox Last 24 Hr 97.7 F-98.5 F 76-105 17-21 134-168/69-94 96-100 Discharge Results Procedures and tests throughout hospitalization: Pending Orders 02/12/17 12:31 Blood Culture Stat 02/15/17 02:55 Red Blood Cells Leuko Red Routine Type and Screen Routine Labs on day of discharge: Labs from last 24 hours 02/15/17 02/15/17 02/15/17 06:55 02:56 02:56 WBC 17.7 H RBC 2.89 L Hgb 8.5 L Hct 25.1 L MCV 86.9 L MCH 29 MCHC 33.9 RDW 14.1 Plt Count 216 MPV 10.5 Neut % (Auto) 59.1 Lymph % (Auto) 29.1 Gilliam % (Auto) 6.4 Eos % (Auto) 3.1 Baso % (Auto) 0.4 Neut # (Auto) 10.5 H Lymph # (Auto) 5.2 H Gilliam # (Auto) 1.1 H Eos # (Auto) 0.6 Baso # (Auto) 0.1 Immature Gran % 1.9 Nucleated RBC % 0.0 Immature Gran # 0.33 Nucleated RBCs # 0.00 Sodium 142 Potassium 3.7 Chloride 107 Carbon Dioxide 24 Anion Gap 14.7 BUN 7 Creatinine 0.90 GFR Calculation 168 BUN/Creatinine Ratio 7.00 Glucose 123 H POC Glucose 202 H Calculated Osmolality 281.1 Calcium 8.6 Blood Type Antibody Screen Crossmatch 02/15/17 02/14/17 02/14/17 02:55 20:35 16:06 WBC RBC Hgb Hct MCV MCH MCHC RDW Plt Count MPV Neut % (Auto) Lymph % (Auto) Gilliam % (Auto) Eos % (Auto) Baso % (Auto) Neut # (Auto) Lymph # (Auto) Gilliam # (Auto) Eos # (Auto) Baso # (Auto) Immature Gran % Nucleated RBC % Immature Gran # Nucleated RBCs # Sodium Potassium Chloride Carbon Dioxide Anion Gap BUN Creatinine GFR Calculation BUN/Creatinine Ratio Glucose POC Glucose 164 H 141 H Calculated Osmolality Calcium Blood Type O POSITIVE Antibody Screen Negative Crossmatch See Detail 02/14/17 11:27 WBC RBC Hgb Hct MCV MCH MCHC RDW Plt Count MPV Neut % (Auto) Lymph % (Auto) Gilliam % (Auto) Eos % (Auto) Baso % (Auto) Neut # (Auto) Lymph # (Auto) Gilliam # (Auto) Eos # (Auto) Baso # (Auto) Immature Gran % Nucleated RBC % Immature Gran # Nucleated RBCs # Sodium Potassium Chloride Carbon Dioxide Anion Gap BUN Creatinine GFR Calculation BUN/Creatinine Ratio Glucose POC Glucose 237 H Calculated Osmolality Calcium Blood Type Antibody Screen Crossmatch Preliminary micro results at discharge 02/12/17 12:31 Blood Culture - Preliminary Blood No growth at 1 day 02/12/17 12:32 Blood Culture - Preliminary Blood No growth at 1 day DS: Provider Date of admission: 02/12/17 09:51 Primary care physician: . No PCP Attending physician on admission: Briana Harden MD Consults: 02/12/17 12:03 Consult to Physician [CONS] Routine Comment: lower GI bleed Consulting Provider: Jordi Navarro Person Notified: Faby Date Notified: 02/12/17 Time Notified: 12:25 Discharging clinician: Judson MICHAUD Expected date of discharge: 02/15/17 <Briana Harden - Last Filed: 02/15/17 09:32> Hospital Course - Time spent with patient Time with patient DS: Greater than 30 minutes (45 min) Diagnosis - Discharge Diagnosis (1) GI bleed Status: Acute (2) Leukocytosis Status: Acute (3) Anemia Status: Acute (4) Hypertension Status: Acute (5) Diabetes mellitus Status: Acute (6) SIRS (systemic inflammatory response syndrome) Status: Acute Discharge Plan - Discharge Data Condition at Discharge: Stable Discharge Diet: diabetic diet Activity: resume usual activities as tolerated Hygiene: no restrictions Weight Bearing at Discharge: full weight bearing Driving: no restrictions - Forms/Instructions Additional Discharge Instructions: avoid seeds and nuts. Exam - Constitutional General appearance: no acute distress, over weight - Respiratory Respiratory exam: Present: clear to auscultation bilaterally. Absent: rhonchi, wheezes - Cardiovascular Cardiovascular exam: Present: regular rate and rhythm. Absent: systolic murmur - GI/Abdominal GI/Abdominal exam: Present: normal bowel sounds, soft. Absent: tenderness - Extremities Exam Extremities exam: Present: normal inspection, normal capillary refill
--- NOTE | 2017-02-15 14:18 | Gastrointestinal Progress Note ---
Assessment and Plan (1) Diverticulosis of colon with hemorrhage Status: Acute Assessment and plan: This patient had diverticuli throughout the colon, his hematocrit dropped down from 32% to 27% but seems to be otherwise doing quite well. Colonoscopy did not demonstrate any evidence of colitis, ischemia, cancer, or other bleeding source. The patient did have a polyp and will require repeat colonoscopy in 5 years. From my standpoint he is certainly safe to be discharged. We may wish to transfuse him a unit or 2 of blood based on how tired he is with his present anemia, he seems to be on the borderline for transfusion of my opinion. If he re-presents again with further bleeding down the road as occurs in about 25% of patients he will need a tagged red blood cell scan at that point. 02/15/17-- The patient's HCT has drifted down into the the 25% range. I think he would benefit from a 2 unit transfusion, and transfusion order written. Patient discussed this with Dr. Harden and elected NOT to receive transfusion, so this was cancelled and patient has been discharged. (2) Acute posthemorrhagic anemia Status: Acute Assessment and plan: Patient's hematocrit this morning is approximately 27%. He has no further bleeding on colonoscopic examination, he can certainly be discharged today in my opinion. 02/15/17-- Hct showed slow drift. Suspect this was ongoing equalibriation, but declined transfusion prior to discharge. (3) Helicobacter pylori gastritis Status: Acute Assessment and plan: This was previously treated approximately 2 years ago and the patient was last seen, his GERD is under control as long as he takes his proton pump inhibitors. (4) Morbid obesity Status: Acute Assessment and plan: The patient needs to lose some weight. He will try to accomplish this as an outpatient. (5) Colon polyps Status: Acute Assessment and plan: The patient has colon polyps discovered on today's colonoscopy. He will require repeat colonoscopy in 5 years. The polyp appeared adenomatous but most of this was lost during the retrieval. 02/15/17-- Hyperplastic polyps only-- repeat colonoscopy in 10 years. Gastroenterology - PN: Subj Interval history: Patient seen earlier today before getting transfused. Polyp results showed hyperplastic polyps only-- will not require repeat for 10 years with this pathology. No further rectal bleeding however his hematocrit has declined to 25 % -->transfusion desired, ordered. Exam (Progress Note) - Constitutional Vitals: Period Temp Pulse Resp BP Sys/Sims Pulse Ox Last 24 Hr 97.7 F-98.5 F 76-100 17-21 134-168/69-85 96-100 General appearance: no acute distress - Head Head exam: Present: normocephalic - Eye Eye exam: Present: EOMI - Neck Neck exam: Present: normal inspection - Respiratory Respiratory exam: Present: clear to auscultation bilaterally. Absent: rhonchi, stridor, wheezes - Cardiovascular Cardiovascular exam: Present: regular rate and rhythm, systolic murmur - GI/Abdominal GI/Abdominal exam: Present: normal bowel sounds, soft. Absent: distended, tenderness, rebound - Extremities Exam Extremities exam: Absent: edema - Neurological Exam Neurological exam: Present: alert, oriented X3 - Psychiatric Psychiatric exam: Present: normal affect, normal mood - Skin Skin exam: Present: warm Results - Labs CBC & BMP: 02/15/17 02:56 02/15/17 02:56 Specialty Discharge - Follow Up or Referrals Follow up with: Herman Moreno MD [Physician] - 03/08/17 1:30 pm Jordi Navarro MD [Physician] - 03/19/17 11:00 am (Be at Dr. Alicea office at 1000 for lab work.)
--- NOTE | 2017-02-16 03:31 | Pathology Report from [facility] ---
[facility] ACCESSION # : [id number] PATIENT NAME : Don Sheppard ORDERING DR : Jordi Navarro MD CLINICAL HX: Rectal bleeding POST-OP DX: Colon polyp SPECIMEN INFO: Descending colon polyp GROSS DESCRIPTION: The specimen is received in formalin labeled with the patients name and consists of fragments of white-soliman mucosal tissue measuring collectively 1.3 x 0.4 cm. Submitted in one cassette. DIAGNOSIS FOR DON SHEPPARD: DESCENDING COLON BIOPSIES: Hyperplastic polyp. Prominent benign lymphoid aggregate. COLLECTED DATE: 02/14/2017 [facility] REPORT DATE: 02/15/2017 ELECTRONICALLY SIGNED BY: Juan Gerber M.D. 02/15/2017 - 9:17:28 [facility]
== END 2017-02-15 10:21 | disposition home or self-care (01) | DRG 378 ==
LOC: N.ED 07:22 → N.EDINP 09:51 → N.5E 11:57
PROVIDERS: ADMIT Internal Medicine; ATTEND Internal Medicine